=== PATIENT | male | born 1970 | race Caucasian/White ===

== ENCOUNTER → 2024-07-06 | Emergency (ER) | payer SELFPAY ==
[~2024-07-06] VITALS: Ht 177.8 cm; Wt 114.8 kg
[~2024-07-06] MED LIST: PRED50TA PO; diphenhydrAMINE HCL 25 MG CAPSULE ONE; diphenhydrAMINE HCL 50 MG CAPSULE ONE; diphenhydrAMINE HCL 50 MG CAPSULE PO ONE; predniSONE 20 MG TABLET ONE
[2024-07-06 16:40] VITALS: TEMP 98.5
[2024-07-06] MEDS: DIPHENHYDRAMINE HCL 12.5 MG/5 ML UDC PO ONE (18:16)
[2024-07-06] MEDS: predniSONE 10 MG TABLET PO ONE (18:16)
[2024-07-06] MEDS: FAMOTIDINE (20 MG) 20 MG TABLET PO ONE (18:16)
[2024-07-06 19:12] VITALS: BP 125/80; O2SAT 96
== END | disposition home or self-care (01) ==
LOC: ER 16:40
DX: T78.40XA Allergy, unspecified, initial encounter (principal); Z79.52 Long term (current) use of systemic steroids; Z96.653 Presence of artificial knee joint, bilateral; Z85.51 Personal history of malignant neoplasm of bladder; X58.XXXA Exposure to other specified factors, initial encounter
CPT/HCPCS: 99284; Q0163 ×2; J7512